=== PATIENT | male | born 1970 | race Two or more races ===

== ENCOUNTER 2022-07-08 17:37 | Emergency (ER) | payer SELFPAY ==
[~2022-07-08] VITALS: Ht 188 cm; Wt 99.8 kg
--- NOTE | 2022-07-08 18:30 | NUR ---
TO ER BED 11. BIBRA 89 FROM HOME C/O ABDOMINAL PAIN X3DAYS -N/V/D, BG 456. PT HAS NOTABLE ABDOMINAL SWELLING, BILATERAL LOWER EXTREMITY SWELLING, AND SWOLLEN TESTICLES. PT STATED PAIN IS 10/10 ON PAIN SCALE. AWAITING MD SCHAEFER.
--- NOTE | 2022-07-08 18:41 | NUR ---
IV ESTABLISHED L AC 20G. LABS DRAWN AND SENT.
--- NOTE | 2022-07-08 18:42 | NUR ---
BS 308, AWARE
--- NOTE | 2022-07-08 19:46 | NUR ---
PATIENT REFUSINF EKG, MADE AWARE, RISK AND BENEFITS HAVE BEEN EXPLAINED TO PT X 2.
[2022-07-08 20:02] LABS: ALANINE AMINOTRANSFERASE 13 U/L (12-78); ALBUMIN 1.8 g/dL (3.4-5.0); ALKALINE PHOSPHATASE 110 U/L (46-116); ASPARTATE AMINOTRANSFERASE 19 U/L (15-37); BILIRUBIN,DIRECT 0.3 mg/dL (0.0-0.2); BILIRUBIN,TOTAL 0.6 mg/dL (0.2-1.0); CALCIUM, SERUM 8.1 mg/dL (8.5-10.1); CARBON DIOXIDE 28 mmol/L (21-32); CHLORIDE 100 mmol/L (98-107); CREATININE 0.9 mg/dL (0.6-1.3); POTASSIUM 3.9 mmol/L (3.5-5.1); SODIUM SERUM 138 mmol/L (136-145); TOTAL PROTEIN, SERUM 6.3 g/dL (6.4-8.2); UREA NITROGEN, BLOOD 23 mg/dL (7-18)
[2022-07-08 20:06] LABS: BASOPHILS % (AUTO) 0.4 % (0.0-2.0); EOSINOPHILS % (AUTO) 0.4 % (0.0-6.0); GLUCOSE 361 mg/dL (74-106); HEMATOCRIT 38 % (39-51); HEMOGLOBIN 12.4 g/dL (13.5-17.5); LYMPHOCYTES # (AUTO) 0.6 K/uL (0.8-4.8); LYMPHOCYTES % (AUTO) 10.9 % (20.0-44.0); MEAN CORPUSCULAR HGB CONC 32 g/dl (31.0-36.0); MEAN CORPUSCULAR VOLUME 82 fL (80-96); MONOCYTES # (AUTO) 0.4 K/uL (0.1-1.30); MONOCYTES % (AUTO) 6.8 % (2.0-12.0); NEUTROPHILS # (AUTO) 4.7 K/uL (1.8-8.9); NEUTROPHILS % (AUTO) 81.5 % (43.0-81.0); PLATELET COUNT (AUTO) 212 K/uL (150-450); RED BLOOD CELL COUNT(AUTO) 4.71 MIL/uL (4.5-6.0); WHITE BLOOD COUNT (AUTO) 5.8 K/uL (4.3-11.0)
--- NOTE | 2022-07-08 20:06 | NUR ---
BS 361
[2022-07-08] MEDS ORDERED: FUROSEMIDE 40 MG/4 ML VIAL IV ONE (20:30)
[2022-07-08] MEDS ORDERED: INSULIN REGULAR, HUMAN 100 UNIT/ML 10 ML VIAL SQ ONE (20:30)
[2022-07-08] MEDS ORDERED: DOXY100C2 PO (22:06)
[2022-07-08 22:21] VITALS: BP 145/80
--- NOTE | 2022-07-08 22:21 | NUR ---
Patient discharged to home in stable condition. Written and verbal after care instructions given. Patient verbalizes understanding of instruction.
== END 2022-07-08 22:22 | disposition home or self-care (01) ==
LOC: ER 17:40
DX: E87.70 Fluid overload, unspecified (principal); I11.0 Hypertensive heart disease with heart failure; I50.9 Heart failure, unspecified; L03.114 Cellulitis of left upper limb; L03.113 Cellulitis of right upper limb; E11.9 Type 2 diabetes mellitus without complications
CPT/HCPCS: 99285; 96374; 71045; 93005; 85025; 80048; 80076; 36415; 84484; 83880; 82962; 96372; J1940; J1815